=== PATIENT | female | born 1965 | race Caucasian/White ===

== ENCOUNTER 2020-11-20 12:16 | Emergency (ER) | payer OTHER ==
--- NOTE | 2020-11-20 12:41 | ED Physician Documentation ---
PD HPI UPPER EXT INJURY - Stated complaint Stated Complaint: RT ARM INJ - Chief complaint Chief Complaint: Trauma Ext - History obtained from History obtained from: Patient - History of Present Illness Location: Right, Wrist Type of injury: Crush Where injury occurred: Home Timing - onset: How many hours ago (1) Timing - duration: Hours (1) Timing - details: Abrupt onset Pain level max: 7 Pain level now: 5 Improved by: Rest, Ice, Immobilization Worsened by: Moving, Palpating Associated symptoms: Swelling, Discolored. No: Weakness, Numbness, Tingling Contributing factors: No: Anticoagulated Recently seen: Not recently seen - Additonal information Additional information: pt is right handed. Crushed by a tongue of hydraulic wood splitter Review of Systems Constitutional: denies: Fever, Chills GI: denies: Vomiting Musculoskeletal: denies: Neck pain, Back pain Neurologic: denies: Headache PD PAST MEDICAL HISTORY - Past Medical History Past Medical History: No - Past Surgical History Past Surgical History: No - Present Medications Home Medications: Ambulatory Orders Medication Instructions Recorded Confirmed Cetirizine [ZyrTEC] 10 mg PO DAILY 11/20/20 11/20/20 - Allergies Allergies/Adverse Reactions: Allergies Allergy/AdvReac Type Severity Reaction Status Date / Time aspirin Allergy Hives Verified 11/20/20 12:19 - Social History Does the pt smoke?: No Smoking Status: Never smoker Does the pt drink ETOH?: No Does the pt have substance abuse?: No PD ED PE NORMAL - Vitals Vital signs reviewed: Yes - General General: Alert and oriented X 3, No acute distress - HEENT HEENT: Moist mucous membranes - Neck Neck: Supple, no meningeal sign - Derm Derm: Warm and dry - Extremities Extremities: Other (Abrasion and ecchymosis to the volar aspect of the right wrist. Also tenderness over the base of the fifth metacarpal) - Neuro Neuro: Alert and oriented X 3 - Psych Psych: Normal mood, Normal affect PD ED PE EXPANDED - Extremities RUBEN UE/Hands Visual: 1 - bruising, swelling, tenderness (NVI, FROM of hand, fingers, wrist. no snuffbox tenderness.) Results - Vitals Vitals: Vital Signs - 24 hr 11/20/20 11/20/20 12:20 14:16 Temperature 36.9 C 36.9 C Heart Rate 79 67 Respiratory 18 16 Rate Blood Pressure 148/99 H 134/84 H O2 Saturation 100 99 Oxygen O2 Source Room air - Rads (name of study) Right wrist x-ray Radiology: Prelim report reviewed, EMP read contemporaneously, See rad report (Nondisplaced fifth metacarpal base fracture as above. ) Right hand x-ray Radiology: Prelim report reviewed, EMP read contemporaneously, See rad report (Nondisplaced fifth metacarpal base fracture as above. ) Procedures - Splint (location) Right wrist Splint applied by: Physician, Tech Type of splint: Fiberglass, Volar cock up Other: Patient tolerated well, No complications, Neurovascular intact PD MEDICAL DECISION MAKING - ED course Complexity details: reviewed results, re-evaluated patient, considered differential, d/w patient ED course: 55-year-old female with a nondisplaced fifth metacarpal base fracture. Placed in a volar splint. Neurovascular intact. We will have her follow-up with her doctor and orthopedics. Patient counseled regarding signs and symptoms for which I believe and urgent re-evaluation would be necessary. Patient with good understanding of and agreement to plan and is comfortable going home at this time This document was made in part using voice recognition software. While efforts are made to proofread this document, sound alike and grammatical errors may occur. Departure - Departure Disposition: 01 Home, Self Care Clinical Impression: Metacarpal bone fracture Qualifiers: Encounter type: initial encounter Metacarpal bone: fifth Fracture type: closed Metacarpal location: base Fracture alignment: nondisplaced Laterality: right Qualified Code(s): S62.346A - Nondisplaced fracture of base of fifth metacarpal bone, right hand, initial encounter for closed fracture Contusion of wrist, right Qualifiers: Encounter type: initial encounter Qualified Code(s): S60.211A - Contusion of right wrist, initial encounter Condition: Good Instructions: ED Fx Hand Closed Follow-Up: your,doctor in 1 week [Other] [facility] [Provider Group] Comments: Follow-up with your doctor in 1 week for repeat evaluation. They may want you to follow-up with orthopedics, this fracture should heal well. Discharge Date/Time: 11/20/20 14:21
--- NOTE | 2020-11-20 12:55 | XRAY Report ---
PROCEDURE: Wrist 4 View RT INDICATIONS: Trauma TECHNIQUE: 4 views of the wrist were acquired. COMPARISON: None FINDINGS: Bones: Nondisplaced fracture involving medial aspect of fifth metacarpal base is seen. No other fract ure or dislocation.. No suspicious bony lesions. Scaphoid view: Scaphoid is intact. Soft tissues: No suspicious soft tissue calcifications. IMPRESSION: Nondisplaced fifth metacarpal base fracture as above. Reviewed by: Anton Campbell MD on 11/20/2020 12:53 PM PST Approved by: Anton Campbell MD on 11/20/2020 12:53 PM PST Station ID: [id number]
--- NOTE | 2020-11-20 13:43 | XRAY Report ---
PROCEDURE: Hand 3 View RT INDICATIONS: R hand crush injury TECHNIQUE: 3 views of the hand(s) acquired. COMPARISON: Wrist radiograph from the same day. FINDINGS: Bones: There is interval cast placement over right hand and wrist. Earlier noted nondisplaced fifth m etacarpal base fracture is again seen without significant changes in right hand and wrist alignment. No gross new fracture or dislocation is seen. No suspicious bony lesions. Soft tissues: No suspicious soft tissue calcifications. IMPRESSION: Interval cast placement over right hand and wrist with reidentification of nondisplaced or minimally displaced fifth metacarpal base fracture and anatomic and alignment. Reviewed by: Anton Campbell MD on 11/20/2020 1:41 PM PST Approved by: Anton Campbell MD on 11/20/2020 1:41 PM PST Station ID: [id number]
[2020-11-20 14:17] VITALS: BP 134/84
== END 2020-11-20 14:21 | disposition home or self-care (01) ==
LOC: ED 12:16
DX: S62.346A Nondisplaced fracture of base of fifth metacarpal bone, right hand, initial encounter for closed fracture (principal); W31.2XXA Contact with powered woodworking and forming machines, initial encounter; Y92.009 Unspecified place in unspecified non-institutional (private) residence as the place of occurrence of the external cause
CPT/HCPCS: 29125; 99284

== ENCOUNTER 2021-01-03 18:40 | Outpatient (CLI) | payer OTHER ==
--- NOTE | 2021-01-03 14:31 | XRAY Report ---
PROCEDURE: Hand 3 View RT INDICATIONS: NONDISPLACED FX OF BASE OF R 5TH METACARPAL TECHNIQUE: 3 views of the hand(s) acquired. COMPARISON: 11/20/2020 FINDINGS: Bones: Interval removal of splint material. Partially imaged oblique transverse fracture plane at the base of the fifth metacarpal is again seen. Bone alignment is normal. Mild asymmetric joint space lo ss at the first metacarpophalangeal joint. No suspicious bony lesions. Soft tissues: No suspicious soft tissue calcifications. IMPRESSION: Healing of the fifth metacarpal base fracture. Reviewed by: Dyana Armstrong MD on 01/03/2021 2:29 PM PST Approved by: Dyana Armstrong MD on 01/03/2021 2:29 PM PST Station ID: [id number]
== END 2021-01-03 23:59 | disposition home or self-care (01) ==
LOC: DI.N 18:40
PROVIDERS: ATTEND Orthopaedic Surgery
DX: S62.346B Nondisplaced fracture of base of fifth metacarpal bone, right hand, initial encounter for open fracture (principal)

== ENCOUNTER 2024-06-02 12:56 | Emergency (ER) | payer OTHER ==
[2024-06-02 13:22] VITALS: BP 149/79; O2SAT 99
[2024-06-02] MEDS: LIDOCAINE 1% 2 ML VIAL SUBQ STA (15:43)
--- NOTE | 2024-06-02 16:17 | ED Physician Documentation ---
PD HPI UPPER EXT INJURY - Stated complaint Stated Complaint: RT FINGER LAC - Chief complaint Chief Complaint: Ext Problem - History obtained from History obtained from: Patient - History of Present Illness Location: Right, Finger (middle) Type of injury: Blunt / blow (caught in car door) Where injury occurred: Home Timing - onset: Today Timing - duration: Minutes Timing - details: Abrupt onset, Still present Improved by: Rest Worsened by: Moving, Palpating Associated symptoms: No: Weakness, Numbness, Tingling, Swelling Contributing factors: No: Anticoagulated, Prior ortho surgery Similar symptoms before: Diagnosis (laceration) Recently seen: Not recently seen - Additonal information Additional information: Previously well 59-year-old Juani Garcia was checking the mail and her mailbox car pulled up behind her and she went to close her door. She closed her R middle finger in the door. She did not notice at first the bleeding. She is having some bleeding from a flap laceration and she is coming to the emergency department now for suturing. She is not up-to-date on her tetanus. Review of Systems Constitutional: denies: Fever Ears: denies: Ear pain Nose: denies: Congestion Throat: denies: Sore throat Respiratory: denies: Cough GI: denies: Vomiting, Diarrhea Skin: reports: Laceration (s) PD PAST MEDICAL HISTORY - Past Medical History Past Medical History: No - Past Surgical History Past Surgical History: Yes - Present Medications Home Medications: Ambulatory Orders Medication Instructions Recorded Confirmed Cetirizine [ZyrTEC] 10 mg PO DAILY 11/20/20 11/20/20 - Allergies Allergies/Adverse Reactions: Allergies Allergy/AdvReac Type Severity Reaction Status Date / Time aspirin Allergy Hives Verified 06/02/24 13:14 - Social History Does the pt smoke?: No Smoking Status: Never smoker Does the pt drink ETOH?: No Does the pt have substance abuse?: No - Immunizations Immunizations are current?: No Immunizations: TDAP >10years/unknown PD ED PE NORMAL - Vitals Vital signs reviewed: Yes (hypertensive) - General General: Alert and oriented X 3, No acute distress, Well developed/nourished - HEENT HEENT: Atraumatic, PERRL, EOMI - Respiratory Respiratory: No respiratory distress - Derm Derm: Normal color, Warm and dry, No rash - Extremities Extremities: No deformity, Other (To the volar surface of the distal phalange of the middle finger of the left hand right hand there is a 3 cm flap laceration this is a deep flap without involvement of bone no foreign material in the wound distal neurovascular intact) - Neuro Neuro: Alert and oriented X 3, data security administrator 2-12 intact, No motor deficit, No sensory deficit, Normal speech Eye Opening: Spontaneous Motor: Obeys Commands Verbal: Oriented GCS Score: 15 - Psych Psych: Normal mood, Normal affect Results - Vitals Vitals: Vital Signs - 24 hr 06/02/24 13:14 Temperature 36.5 C Heart Rate 69 Respiratory 16 Rate Blood Pressure 149/79 H O2 Saturation 99 Oxygen O2 Source Room air Procedures - Laceration (location) right middle finger Wound type: Curved, Flap, Into subcut fat, Clean Neurovascular status: Sensory intact, Motor intact, Vascular intact Anesthesia: Lidocaine 1% Wound preparation: Hibiclens, Irrigated copiously NS, Wound explored, To the base Skin layer closure: Nylon, Interrupted, Size #-0 - enter number Other: Patient tolerated well, No complications, Dressing applied, Tetanus booster given PD Medical Decision Making - ED course Complexity details: considered differential, d/w patient ED course: 59-year-old female with a 3 cm flap laceration to the left middle finger has suturing and a tetanus booster. Departure - Departure Disposition: 01 Home, Self Care Clinical Impression: Laceration of middle finger Qualifiers: Encounter type: initial encounter Damage to nail status: with damage Foreign body presence: without foreign body Laterality: right Qualified Code(s): S61.312A - Laceration without foreign body of right middle finger with damage to nail, initial encounter Condition: Stable Instructions: ED Laceration Hand Comments: Juani, today looks like you have a flap laceration to your middle finger and you will need to have the stitches removed in about a week to 10 days. Forms: PCP List
[2024-06-02] MEDS: BACITRACIN ZINC OINT 1 PACKET TOP STA (16:55)
[2024-06-02] MEDS: TETANUS/DIPHTHERIA/PERTUSSIS 0.5 ML SYRINGE IM ONE (16:55)
== END 2024-06-02 16:59 | disposition home or self-care (01) ==
LOC: ED 12:56
DX: S61.312A Laceration without foreign body of right middle finger with damage to nail, initial encounter (principal); W26.8XXA Contact with other sharp object(s), not elsewhere classified, initial encounter; Z23 Encounter for immunization
CPT/HCPCS: 12002; 90471; 90715; 99283; A9270